=== PATIENT | female | born 1995 | race Caucasian/White ===

== ENCOUNTER 2019-01-15 19:01 | Emergency (ER) | payer OTHER ==
[2019-01-15] MEDS ORDERED: NORMAL SALINE 1000 ML 1,000 ML IV ONE (20:08)
--- NOTE | 2019-01-15 20:16 | ER Document Report ---
ED Medical Screen (RME) - General Chief Complaint: Diarrhea Stated Complaint: STOMACH PAIN Time Seen by Provider: 01/15/19 20:03 Mode of Arrival: Ambulatory Information source: Patient TRAVEL OUTSIDE OF THE [place] IN LAST 30 DAYS: No - HPI Patient complains to provider of: Diarrhea Notes: 01/15/19 20:14 Patient here with complaints of diarrhea for the last 2 days. It seems to have gotten somewhat better but she continues to have watery stool. No blood in her stool. No vomiting. No fever. No abdominal pain. No prior abdominal surgeries, no chronic abdominal problems. She denies any recent travel, antibiotics, sick contacts. Exam Nontoxic, no distress. Lungs clear and equal throughout. Regular rhythm, tachycardia. Abdomen soft, nontender on limited triage abdominal exam. No CVA tenderness. Plan Due to the patient's tachycardia with recent diarrhea I have ordered CBC and CMP to ensure she does not have any electRLYTE abnormalities and also assess her kidney function. Urinalysis was ordered. Saline lock with liter of normal saline. An initial examination was made on the patient as part of the triage process, and it was determined a more comprehensive evaluation was necessary. Initial labs were ordered and patient was transferred to another provider in the ED who assumed care and finished evaluation and plan. Past Medical History - Social History Chew tobacco use (# tins/day): No Frequency of alcohol use: None Drug Abuse: None Renal/ Medical History: Denies: Hx Peritoneal Dialysis Physical Exam - Vital signs Vitals: Temp Pulse Resp BP Pulse Ox 98.4 F 139 H 20 141/95 H 99 01/15/19 19:26 01/15/19 19:26 01/15/19 19:26 01/15/19 19:26 01/15/19 19:26 Course - Vital Signs Vital signs: Temp Pulse Resp BP Pulse Ox 98.4 F 139 H 20 141/95 H 99 01/15/19 19:26 01/15/19 19:26 01/15/19 19:26 01/15/19 19:26 01/15/19 19:26
[2019-01-15 20:47] LABS: ABSOLUTE EOSINOPHILS # (AUTO) 0.1 10^3/uL (0.0-0.6); ABSOLUTE LYMPHOCYTES (AUTO) 1.1 10^3/uL (0.5-4.7); ABSOLUTE MONOCYTES (AUTO) 0.8 10^3/uL (0.1-1.4); ABSOLUTE NEUT (AUTO) 5.8 10^3/uL (1.7-8.2); BASOPHILS % (AUTO) 0.3 % (0-2); EOSINOPHILS % (AUTO) 0.7 % (0-6); HEMATOCRIT 44.6 % (36.0-47.0); HEMOGLOBIN 15.5 g/dL (12.0-15.5); LYMPHOCYTES % (AUTO) 14.5 % (13-45); MEAN CORPUSCULAR HEMOGLOBIN 31.4 pg (27.0-33.4); MEAN CORPUSCULAR HGB CONC 34.7 g/dL (32.0-36.0); MEAN CORPUSCULAR VOLUME 91 fl (80-97); MONOCYTES % (AUTO) 10.6 % (3-13); PLATELET COUNT 364 10^3/uL (150-450); RED BLOOD COUNT 4.92 10^6/uL (3.72-5.28); RED CELL DISTRIBUTION WIDTH 12.9 % (11.5-14.0); SEGMENTED NEUTROPHILS % (AUTO) 73.9 % (42-78); TOTAL CELLS COUNTED % (AUTO) 100 %; WHITE BLOOD COUNT 7.8 10^3/uL (4.0-10.5)
[2019-01-15 20:53] LABS: APPEARANCE,URINE CLEAR; BILIRUBIN,URINE NEGATIVE (NEGATIVE); COLOR,URINE YELLOW; GLUCOSE, URINE NEGATIVE (NEGATIVE); KETONES,URINE 20 mg/dL (NEGATIVE); LEUKOCYTE ESTERASE,URINE SMALL (NEGATIVE); NITRITE,URINE NEGATIVE (NEGATIVE); PROTEIN,URINE NEGATIVE (NEGATIVE); URINE SPECIFIC GRAVITY 1.003; UROBILINOGEN,URINE NEGATIVE mg/dL (<2.0)
[2019-01-15 21:04] LABS: ALANINE AMINOTRANSFERASE 26 U/L (9-52); ALBUMIN 4.5 g/dL (3.5-5.0); ALKALINE PHOSPHATASE 80 U/L (38-126); ANION GAP 15 (5-19); ASPARTATE AMINO TRANSFERASE 29 U/L (14-36); BILIRUBIN,DIRECT 0.3 mg/dL (0.0-0.4); BILIRUBIN,TOTAL 0.5 mg/dL (0.2-1.3); BLOOD UREA NITROGEN 5 mg/dL (7-20); CALCIUM 9.5 mg/dL (8.4-10.2); CARBON DIOXIDE 19 mmol/L (22-30); CHLORIDE 105 mmol/L (98-107); GLUCOSE 94 mg/dL (75-110); LIPASE 40.2 U/L (23-300); POTASSIUM 3.8 mmol/L (3.6-5.0); SODIUM 139.1 mmol/L (137-145); TOTAL PROTEIN 8.1 g/dL (6.3-8.2)
[2019-01-16] MEDS ORDERED: NORMAL SALINE 1000 ML 1,000 ML IV ONE (00:36)
--- NOTE | 2019-01-16 00:37 | ER Document Report ---
ED General - General Chief Complaint: Diarrhea Stated Complaint: STOMACH PAIN Time Seen by Provider: 01/15/19 20:03 Mode of Arrival: Ambulatory Notes: Patient is a pleasant 23-year-old female presents with complaint of watery stools for 2 days. 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 No recent travel outside the country. No recent antibiotic use in the last month. No blood in the stool. No fevers. No vomiting. No associated abdominal pain. No drinking of untreated water. No other complaints at this time. TRAVEL OUTSIDE OF THE [place] IN LAST 30 DAYS: No Past Medical History - General Information source: Patient - Social History Smoking Status: Unknown if Ever Smoked Chew tobacco use (# tins/day): No Frequency of alcohol use: None Drug Abuse: None Family History: Reviewed & Not Pertinent Patient has suicidal ideation: No Patient has homicidal ideation: No Renal/ Medical History: Denies: Hx Peritoneal Dialysis Review of Systems - Review of Systems Notes: My Normal Review Basic REVIEW OF SYSTEMS: CONSTITUTIONAL : Denies fever, chills, or sweats. Denies recent illness. EENT: Denies eye, ear, throat, or mouth pain or symptoms. Denies nasal or sinus congestion. CARDIOVASCULAR: Denies chest pain. RESPIRATORY: Denies cough, cold, or chest congestion. Denies shortness of breath, difficulty breathing, or wheezing. GASTROINTESTINAL: Denies abdominal pain. Denies nausea, vomiting. Has diarrhea. GENITOURINARY: Denies difficulty urinating, painful urination, burning, frequency, or blood in urine. MUSCULOSKELETAL: Denies neck or back pain or joint pain or swelling. SKIN: Denies rash or skin lesions. NEUROLOGICAL: Denies altered mental status or loss of consciousness. Denies headache. Denies weakness or paralysis or loss of use of either side. Denies problems with gait or speech. Denies sensory or motor loss. ALL OTHER SYSTEMS REVIEWED AND NEGATIVE. Physical Exam - Vital signs Vitals: Temp Pulse Resp BP Pulse Ox 98.4 F 139 H 20 141/95 H 99 01/15/19 19:26 01/15/19 19:26 01/15/19 19:26 01/15/19 19:26 01/15/19 19:26 - Notes Notes: General Appearance: Well nourished, alert, cooperative, no acute distress, no obvious discomfort. Well-appearing. Vitals: reviewed, See vital signs table. Head: no swelling or tenderness to the head Eyes: PERRL, EOMI, Conjuctiva clear Mouth: No decreasd moisture Lungs: No wheezing, No rales, No rhonci, No accessory muscle use, good air exchange bilaterally. Heart: Tachycardic rate, Regular rythm, No murmur, no rub Abdomen: Normal BS, soft, No rigidity, No abdominal tenderness, No guarding, no rebound, no abdominal masses, no organomegaly Extremities: strength 5/5 in all extremities, good pulses in all extremities, no swelling or tenderness in the extremities, no edema. Skin: warm, dry, appropriate color, no rash Neuro: speech clear, oriented x 3, normal affect, responds appropriately to questions. Course - Re-evaluation Re-evalutation: 01/16/19 06:20 Patient is feeling improved after receiving IV fluids. She was unable to give a stool sample. 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 Laboratory evaluation is otherwise unremarkable she looks well and therefore feel she is safe to be discharged home. I discharged discharge her home with a prescription for stool culture as well as a stool collection kit. Informed her to drop off the stool sample at the hospital lab and we will call her if her results are positive. I informed her that if she does not hear from us after 2 days and she should call the culture callback number. I informed her to return to ER if she still having diarrhea after 3 to 4 days. I encouraged her return to ER immediately if she has fevers, abdominal pain, vomiting, or bloody stools. Patient agrees with plan will be discharged home. Dictation of this chart was performed using voice recognition software; therefore, there may be some unintended grammatical errors. - Vital Signs Vital signs: Temp Pulse Resp BP Pulse Ox 98.2 F 101 H 17 121/66 100 01/16/19 04:00 01/16/19 04:00 01/16/19 04:00 01/16/19 04:00 01/16/19 04:00 - Laboratory Result Diagrams: 01/15/19 20:26 01/15/19 20:26 Laboratory results interpreted by me: 01/15/19 01/15/19 20:26 20:26 Carbon Dioxide 19 L BUN 5 L Urine Ketones 20 H Urine Blood MODERATE H Ur Leukocyte Esterase SMALL H Discharge - Discharge Clinical Impression: Diarrhea Qualifiers: Diarrhea type: unspecified type Qualified Code(s): R19.7 - Diarrhea, unspecified Condition: Good Disposition: HOME, SELF-CARE Additional Instructions: Your laboratory evaluation is unremarkable. I feel that you are safe to be discharged home. 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 We will give you a stool collection kit to take home. Please take the prescription and bring your stool sample back to the hospital lab so that we can run it. If your sample is positive they should call you in approximately 2 days after dropping off the sample; however, if you do not hear from the hospital then you should call the culture callback number at [phone]. Please return to the ER immediately if you have fevers, abdominal pain, blood in your stool, or feel that your symptoms are worsening. If your diarrhea has not resolved in 4 days and you should return to ER for reevaluation. Forms: Follow-Up Laboratory Testing, Return to Work
[2019-01-16 05:13] VITALS: BP 121/66
== END 2019-01-16 04:00 | disposition home or self-care (01) ==
LOC: ER 19:01
DX: R19.7 Diarrhea, unspecified (principal); R10.9 Unspecified abdominal pain
CPT/HCPCS: 99284; 96360; 96361; 36415; 83690; 85025; 81025; 80053; 81001; J7030 ×2